=== PATIENT | male | born 1955 | race Caucasian/White ===

== ENCOUNTER 2022-02-21 07:46 | Emergency (ER) | payer OTHER ==
[~2022-02-21] VITALS: Ht 167.6 cm; Wt 65.0 kg
[2022-02-21 07:59] VITALS: BP 128/91
[2022-02-21] MEDS ORDERED: TAMS-13 PO (08:38)
[2022-02-21] MEDS ORDERED: ARIP10TA38 PO (08:38)
[2022-02-21] MEDS ORDERED: SPIR-37 PO (08:38)
[2022-02-21] MEDS ORDERED: ASPI-1450 PO (08:38)
[2022-02-21] MEDS ORDERED: CLOP75TA60 PO (08:38)
[2022-02-21] MEDS ORDERED: FURO40 PO (08:38)
[2022-02-21] MEDS ORDERED: METO25XL PO (08:38)
[2022-02-21] MEDS ORDERED: METF-1211 PO (08:38)
== END 2022-02-21 09:57 | disposition home or self-care (01) ==
LOC: EMS 07:47
DX: M79.18 Myalgia, other site (principal); I48.91 Unspecified atrial fibrillation; E11.9 Type 2 diabetes mellitus without complications; F20.9 Schizophrenia, unspecified; I63.9 Cerebral infarction, unspecified; Z88.4 Allergy status to anesthetic agent
CPT/HCPCS: 99283; Z7502

== ENCOUNTER 2022-06-04 10:37 | Emergency (ER) | payer OTHER ==
[~2022-06-04] VITALS: Ht 175.3 cm; Wt 75.0 kg
[~2022-06-04 10:37] MED LIST: ARIP10TA38 PO; ASPI-1450 PO; CLOP75TA60 PO; FURO40 PO; METF-1211 PO; METO25XL PO; SPIR-37 PO; TAMS-13 PO
[2022-06-04 13:10] LABS: ANION GAP 8 mmol/L (8-16); CARBON DIOXIDE 28 mmol/L (22-29); CHLORIDE 105 mmol/L (98-107); CREATININE 1.07 mg/dL (0.60-1.30); GLOMERULAR FILTR. RATE CALC > 60 mL/min (>60); GLUCOSE,RANDOM 205 mg/dL (70-110); POTASSIUM 4.5 mmol/L (3.5-5.1); SODIUM SERUM 141 mmol/L (136-145); UREA NITROGEN, BLOOD 21 mg/dL (7-18)
[2022-06-04 13:15] LABS: ALANINE AMINOTRANSFERASE 33 U/L (12-78); ALBUMIN 3.2 g/dL (3.4-5.0); ALKALINE PHOSPHATASE 100 U/L (46-116); ASPARTATE AMINOTRANSFERASE 24 U/L (15-37); BILIRUBIN,TOTAL 0.3 mg/dL (0.1-1.0); LIPASE 96 U/L (73-393); TOTAL PROTEIN, SERUM 7.3 g/dL (6.4-8.2)
[2022-06-04 14:12] LABS: BASOPHILS % (AUTO) 0.3 % (0.0-2.0); EOSINOPHILS % (AUTO) 1.3 % (1.0-6.0); HEMATOCRIT 31.6 % (41-53); HEMOGLOBIN 10.3 g/dL (13.5-17.5); LYMPHOCYTES # (AUTO) 1.2 K/uL (1.0-4.8); MEAN CORPUSCULAR HEMOGLOBIN 28.1 pg (26.0-34.0); MEAN CORPUSCULAR HGB CONC 32.5 G/dL (31.0-37.0); MEAN CORPUSCULAR VOLUME 86 fL (80-100); MONOCYTES # (AUTO) 0.6 K/uL (0.1-1.0); NEUTROPHILS % (AUTO) 76.4 % (40.0-70.0); PLATELET COUNT (AUTO) 187 K/uL (150-450); RED BLOOD CELL COUNT(AUTO) 3.65 MIL/uL (4.50-5.90); RED CELL DISTRIBUTION WIDTH 16.2 % (11.5-14.5)
[2022-06-04 15:39] VITALS: BP 119/81
== END 2022-06-04 18:25 | disposition home or self-care (01) ==
LOC: EMS 10:42
DX: I95.9 Hypotension, unspecified (principal); E86.0 Dehydration; I48.91 Unspecified atrial fibrillation; F20.9 Schizophrenia, unspecified; Z98.890 Other specified postprocedural states; Z88.8 Allergy status to other drugs, medicaments and biological substances
CPT/HCPCS: 70450; 71045; 80053; 83605; 83690; 84484; 85025; 93005; 99285; 36415-L1; 36415-TC